=== PATIENT | female | born 1940 | race Asian ===

== ENCOUNTER 2017-06-08 22:49 | Inpatient (IN) | payer OTHER, MEDICARE ==
[2017-06-08] MEDS: CEFTRIAXONE 1 GM/50 ML (PMX) 50 ML IVPB (22:56)
[2017-06-08] MEDS: SOD CHLORIDE 0.9% 1,000 ML IV (23:20)
[2017-06-08 23:35] LABS: ADD MAN DIFF? NO
[2017-06-08] MEDS: ONDANSETRON 4 MG INJ IV (23:35)
[2017-06-08] MEDS: PANTOPRAZOLE IV 80 MG in SOD CHLORIDE 0.9% 100 ML IVPB (23:36)
[2017-06-08 23:41] LABS: WHITE BLOOD COUNT 7.4 10^3/ul (4.8-10.8)
[2017-06-08 23:41] LABS: ABNORMAL IP MESSAGE 1; BASOPHILS % 0.3 % (0.0-2.0); EOSINOPHILS # 0.2 10^3/ul (0.0-0.5); EOSINOPHILS % 2.2 % (0.0-7.0); HEMATOCRIT 28.1 % (37.0-47.0); LYMPHOCYTES # 2.6 10^3/ul (0.8-2.9); LYMPHOCYTES % 34.6 % (15.0-51.0); MEAN CORPUSCULAR HEMOGLOBIN 29.4 pg (29.0-33.0); MEAN CORPUSCULAR VOLUME 91.8 fl (82.0-101.0); MONOCYTE # 0.5 10^3/ul (0.3-0.9); MONOCYTES % 6.7 % (0.0-11.0); NEUTROPHIL # 4.2 10^3/ul (1.6-7.5); NEUTROPHILS % 55.8 % (39.0-77.0); PLATELET COUNT 88 10^3/UL (140-415); RED BLOOD COUNT 3.06 10^6/ul (4.20-5.40); RED CELL DISTRIBUTION WIDTH 16.9 % (11.5-14.5)
[2017-06-08 23:54] LABS: INR 1.21; PROTIME 15.5 Sec (11.9-14.9); PT RATIO 1.2
[2017-06-08 23:55] LABS: PARTIAL THROMBOPLASTIN TIME 32.4 Sec (25.0-35.0)
[2017-06-08 23:56] LABS: ALANINE AMINOTRANSFERASE 37 IU/L (13-69); ALBUMIN 3.4 g/dl (3.3-4.9); ALBUMIN/GLOBULIN RATIO 1.13; ALKALINE PHOSPHATASE 70 IU/L (42-121); ANION GAP 14 (8-16); ASPARTATE AMINO TRANSFERASE 30 IU/L (15-46); BILIRUBIN,INDIRECT 0.5 mg/dl (0-1.1); BILIRUBIN,TOTAL 0.5 mg/dl (0.2-1.3); BLOOD UREA NITROGEN 11 mg/dl (7-20); CALCIUM 8.8 mg/dl (8.4-10.2); CARBON DIOXIDE 24 mmol/L (21-31); CHLORIDE 107 mmol/L (97-110); CREATININE 0.72 mg/dl (0.44-1.00); GLUCOSE 181 mg/dl (70-220); POSITIVE DIFF @See below; POTASSIUM 3.6 mmol/L (3.5-5.1); SODIUM 141 mmol/L (135-144); TOTAL PROTEIN 6.4 g/dl (6.1-8.1)
[2017-06-09] MEDS: OCTREOTIDE 50 MCG in SOD CHLORIDE 0.9% 25 ML IVPB (00:05)
[2017-06-09 00:08] LABS: TROPONIN-I < 0.012 ng/ml (0.00-0.12)
[2017-06-09] MEDS: OCTREOTIDE 500 MCG in SOD CHLORIDE 0.9% 49 ML IV (00:20)
[2017-06-09 07:35] LABS: ADD MAN DIFF? NO
[2017-06-09 07:40] LABS: WHITE BLOOD COUNT 3.2 10^3/ul (4.8-10.8)
[2017-06-09 07:40] LABS: ABNORMAL IP MESSAGE 1; EOSINOPHILS % 1.3 % (0.0-7.0); HEMATOCRIT 18.7 % (37.0-47.0); LYMPHOCYTES # 0.7 10^3/ul (0.8-2.9); LYMPHOCYTES % 23.5 % (15.0-51.0); MEAN CORPUSCULAR HEMOGLOBIN 28.9 pg (29.0-33.0); MEAN CORPUSCULAR HGB CONC 31.6 g/dl (32.0-37.0); MEAN CORPUSCULAR VOLUME 91.7 fl (82.0-101.0); MEAN PLATELET VOLUME 11.1 fl (7.4-10.4); MONOCYTE # 0.3 10^3/ul (0.3-0.9); MONOCYTES % 8.3 % (0.0-11.0); NEUTROPHIL # 2.1 10^3/ul (1.6-7.5); NEUTROPHILS % 66.6 % (39.0-77.0); PLATELET COUNT 35 10^3/UL (140-415); RED BLOOD COUNT 2.04 10^6/ul (4.20-5.40)
[2017-06-09 07:42] LABS: POSITIVE DIFF @See below
[2017-06-09 07:44] LABS: HEMOGLOBIN 5.9 g/dl (12.0-16.0)
[2017-06-09 07:45] LABS: PATH REVIEW? YES
[2017-06-09 10:34] LABS: ANISOCYTOSIS 1+ (0-0); BAND NEUTROPHILS #M 0.1 10^3/ul (0.0-0.6); BAND NEUTROPHILS % (M) 5 % (0-4); EOSINOPHILS % (M) 2 % (0-7); GIANT THROMBO% (M) 5 % (0-0); HYPOCHROMASIA 1+ (0-0); LYMPHOCYTES #M 0.6 10^3/ul (0.8-2.9); LYMPHOCYTES % (M) 20 % (15-51); MONOCYTES % (M) 1 % (0-11); OVALOCYTES 2+ (0-0); PLATELET ESTIMATE DECREASED; POIKILOCYTOSIS 1+ (0-0); POLYCHROMASIA 1+ (0-0); SEG NEUT #M 2.3 10^3/ul (1.6-7.5); SEGMENTED NEUTROPHILS (M) % 72 % (39-77); SMUDGE%M 5 % (0-0); TEAR DROP CELLS 1+ (0-0)
[2017-06-09 20:16] LABS: IRON 53 ug/dl (35-150)
[2017-06-09 20:25] LABS: % IRON SATURATION 17 % SAT (22-52); TOTAL IRON BINDING CAPACITY 303 ug/dl (241-421)
[2017-06-09] MEDS: OCTREOTIDE 50 MCG in SOD CHLORIDE 0.9% 50 ML IVPB (21:18)
[2017-06-09] MEDS: PANTOPRAZOLE IV 80 MG in SOD CHLORIDE 0.9% 100 ML IV ×2 (21:20)
[2017-06-09 21:23] LABS: FOLATE 14.5 ng/ml (2.8-20.0)
[2017-06-09 21:28] LABS: ADD MAN DIFF? NO
[2017-06-09 21:30] LABS: ABNORMAL IP MESSAGE 1; BASOPHILS % 0.4 % (0.0-2.0); EOSINOPHILS # 0.1 10^3/ul (0.0-0.5); EOSINOPHILS % 1.3 % (0.0-7.0); HEMATOCRIT 28.7 % (37.0-47.0); HEMOGLOBIN 9.5 g/dl (12.0-16.0); LYMPHOCYTES # 1.3 10^3/ul (0.8-2.9); LYMPHOCYTES % 23.2 % (15.0-51.0); MEAN CORPUSCULAR HEMOGLOBIN 30.3 pg (29.0-33.0); MEAN CORPUSCULAR HGB CONC 33.1 g/dl (32.0-37.0); MEAN CORPUSCULAR VOLUME 91.4 fl (82.0-101.0); MEAN PLATELET VOLUME 10.4 fl (7.4-10.4); MONOCYTE # 0.4 10^3/ul (0.3-0.9); MONOCYTES % 7.7 % (0.0-11.0); NEUTROPHIL # 3.6 10^3/ul (1.6-7.5); NEUTROPHILS % 66.3 % (39.0-77.0); RED BLOOD COUNT 3.14 10^6/ul (4.20-5.40)
[2017-06-09 21:30] LABS: WHITE BLOOD COUNT 5.4 10^3/ul (4.8-10.8)
[2017-06-09 21:31] LABS: PLATELET COUNT 54 10^3/UL (140-415)
[2017-06-09 23:24] LABS: IMMEDIATE SPIN CROSSMATCH 1 4
[2017-06-09] MEDS: OCTREOTIDE 1 MG in DEXTROSE 5% 95 ML IV (23:35)
[2017-06-10 03:22] LABS: HEMOGLOBIN 7.9 g/dl (12.0-16.0)
[2017-06-10] MEDS: SOD CHLORIDE 0.9% 250 ML IV (05:54)
[2017-06-10 07:24] LABS: ADD MAN DIFF? NO
[2017-06-10 07:30] LABS: ABNORMAL IP MESSAGE 1; BASOPHILS % 0.2 % (0.0-2.0); EOSINOPHILS % 0.2 % (0.0-7.0); HEMATOCRIT 23.5 % (37.0-47.0); HEMOGLOBIN 7.7 g/dl (12.0-16.0); LYMPHOCYTES # 0.4 10^3/ul (0.8-2.9); MEAN CORPUSCULAR HEMOGLOBIN 29.6 pg (29.0-33.0); MEAN CORPUSCULAR HGB CONC 32.8 g/dl (32.0-37.0); MEAN CORPUSCULAR VOLUME 90.4 fl (82.0-101.0); MEAN PLATELET VOLUME 10.8 fl (7.4-10.4); MONOCYTE # 0.2 10^3/ul (0.3-0.9); NEUTROPHIL # 4.4 10^3/ul (1.6-7.5); RED CELL DISTRIBUTION WIDTH 16.2 % (11.5-14.5)
[2017-06-10 07:40] LABS: PLATELET COUNT 34 10^3/UL (140-415); POSITIVE DIFF @See below
[2017-06-10] MEDS: PANTOPRAZOLE IV 80 MG in SOD CHLORIDE 0.9% 100 ML IV ×2 (07:41→18:40)
[2017-06-10 08:02] LABS: ALANINE AMINOTRANSFERASE 40 IU/L (13-69); ALBUMIN 3.3 g/dl (3.3-4.9); ALKALINE PHOSPHATASE 54 IU/L (42-121); ANION GAP 12 (8-16); ASPARTATE AMINO TRANSFERASE 37 IU/L (15-46); BILIRUBIN,INDIRECT 2.3 mg/dl (0-1.1); BILIRUBIN,TOTAL 2.3 mg/dl (0.2-1.3); BLOOD UREA NITROGEN 22 mg/dl (7-20); CALCIUM 8.7 mg/dl (8.4-10.2); CARBON DIOXIDE 25 mmol/L (21-31); CHLORIDE 109 mmol/L (97-110); CREATININE 0.79 mg/dl (0.44-1.00); GLUCOSE 132 mg/dl (70-220); MAGNESIUM 1.6 mg/dl (1.7-2.5); POTASSIUM 3.7 mmol/L (3.5-5.1); SODIUM 142 mmol/L (135-144); TOTAL PROTEIN 6.3 g/dl (6.1-8.1)
[2017-06-10 08:57] LABS: ADD UMIC YES; UR ASCORBIC ACID NEGATIVE (NEGATIVE); UR BILIRUBIN (Dip) NEGATIVE (NEGATIVE); UR BLOOD (Dip) 1+ mg/dL (NEGATIVE); UR CLARITY SLIGHTLY CLOUDY (CLEAR); UR COLOR YELLOW (YELLOW); UR GLUCOSE (Dip) NEGATIVE (NEGATIVE); UR KETONES (Dip) TRACE mg/dL (NEGATIVE); UR LEUKOCYTE ESTERASE (Dip) NEGATIVE Leu/ul (NEGATIVE); UR MUCUS FEW /HPF (NONE SEEN); UR NITRITE (Dip) NEGATIVE (NEGATIVE); UR RBC 1 /HPF (0-5); UR SPECIFIC GRAVITY (Dip) 1.021 (1.003-1.030); UR TOTAL PROTEIN (Dip) NEGATIVE (NEGATIVE); UR UROBILINOGEN (Dip) NEGATIVE (NEGATIVE); UR WBC 1 /HPF (0-5)
[2017-06-10] MEDS: SOD CHLORIDE 0.9% 250 ML IV* (10:49)
[2017-06-10 12:27] LABS: HEMATOCRIT 26.5 % (37.0-47.0)
[2017-06-10] MEDS ORDERED: NACL 0.9% 3 ML SYG IV (13:00)
[2017-06-10] MEDS ORDERED: ONDANSETRON 4 MG INJ IV (13:00)
[2017-06-10] MEDS: D5W-0.45 NACL + KCL 20 MEQ 1,000 ML IV ×2 (16:12→21:57)
[2017-06-10] MEDS: MAGNESIUM SULFATE 2 GM/50 ML 50 ML IVPB (16:18)
[2017-06-10] MEDS: IOHEXOL 100 ML (17:33)
[2017-06-10] MEDS: SOD CHLORIDE 0.9% 100 ML (17:33)
[2017-06-10 18:37] LABS: HEMATOCRIT 24.6 % (37.0-47.0); HEMOGLOBIN 8.2 g/dl (12.0-16.0)
[2017-06-10] MEDS: OCTREOTIDE 1 MG in DEXTROSE 5% 95 ML IV (18:40)
[2017-06-11 02:56] LABS: HEMATOCRIT 27.1 % (37.0-47.0)
[2017-06-11] MEDS: PANTOPRAZOLE IV 80 MG in SOD CHLORIDE 0.9% 100 ML IV (03:07)
[2017-06-11 06:05] LABS: IMMEDIATE SPIN CROSSMATCH 1
[2017-06-11] MEDS: D5W-0.45 NACL + KCL 20 MEQ 1,000 ML IV ×2 (08:58→21:59)
[2017-06-11 11:52] LABS: ADD MAN DIFF? NO
[2017-06-11 11:58] LABS: WHITE BLOOD COUNT 4.1 10^3/ul (4.8-10.8)
[2017-06-11 11:58] LABS: ABNORMAL IP MESSAGE 1; BASOPHILS % 0.2 % (0.0-2.0); EOSINOPHILS # 0.1 10^3/ul (0.0-0.5); EOSINOPHILS % 1.2 % (0.0-7.0); HEMATOCRIT 31.3 % (37.0-47.0); HEMOGLOBIN 10.4 g/dl (12.0-16.0); LYMPHOCYTES # 0.5 10^3/ul (0.8-2.9); LYMPHOCYTES % 11.8 % (15.0-51.0); MEAN CORPUSCULAR HEMOGLOBIN 29.3 pg (29.0-33.0); MEAN CORPUSCULAR HGB CONC 33.2 g/dl (32.0-37.0); MEAN CORPUSCULAR VOLUME 88.2 fl (82.0-101.0); MEAN PLATELET VOLUME 10.2 fl (7.4-10.4); MONOCYTE # 0.3 10^3/ul (0.3-0.9); MONOCYTES % 7.4 % (0.0-11.0); NEUTROPHIL # 3.2 10^3/ul (1.6-7.5); NEUTROPHILS % 78.9 % (39.0-77.0); RED BLOOD COUNT 3.55 10^6/ul (4.20-5.40); RED CELL DISTRIBUTION WIDTH 17.1 % (11.5-14.5)
[2017-06-11 12:12] LABS: PHOSPHORUS 2.1 mg/dl (2.5-4.9)
[2017-06-11 12:13] LABS: ALANINE AMINOTRANSFERASE 37 IU/L (13-69); ALBUMIN 3.2 g/dl (3.3-4.9); ALBUMIN/GLOBULIN RATIO 1.03; ALKALINE PHOSPHATASE 56 IU/L (42-121); ANION GAP 10 (8-16); ASPARTATE AMINO TRANSFERASE 34 IU/L (15-46); BILIRUBIN,INDIRECT 5.6 mg/dl (0-1.1); BILIRUBIN,TOTAL 5.6 mg/dl (0.2-1.3); BLOOD UREA NITROGEN 18 mg/dl (7-20); CALCIUM 8.3 mg/dl (8.4-10.2); CARBON DIOXIDE 26 mmol/L (21-31); CHLORIDE 106 mmol/L (97-110); CREATININE 0.74 mg/dl (0.44-1.00); GLUCOSE 129 mg/dl (70-220); POTASSIUM 4.3 mmol/L (3.5-5.1); SODIUM 138 mmol/L (135-144); TOTAL PROTEIN 6.3 g/dl (6.1-8.1)
[2017-06-11 12:14] LABS: PLATELET COUNT 29 10^3/UL (140-415); POSITIVE DIFF @See below
[2017-06-11] MEDS: PANTOPRAZOLE 40 MG INJ IV (17:30)
[2017-06-11] MEDS: PROPRANOLOL 10 MG TAB PO ×2 (17:31→21:00)
[2017-06-11] MEDS: ACETAMINOPHEN 325 MG TAB PO (17:32)
[2017-06-11] MEDS: VALSARTAN 80 MG TAB PO ×2 (17:32→21:00)
[2017-06-11 20:15] LABS: TYPE AND SCREEN 1
[2017-06-11] MEDS ORDERED: VALSARTAN 80 MG TAB PO (21:00)
[2017-06-12] MEDS: PANTOPRAZOLE 40 MG INJ IV ×2 (06:32→18:38)
[2017-06-12] MEDS: VALSARTAN 80 MG TAB PO ×2 (06:32→21:34)
[2017-06-12 08:58] LABS: ADD MAN DIFF? NO
[2017-06-12 09:12] LABS: ABNORMAL IP MESSAGE 1; EOSINOPHILS # 0.1 10^3/ul (0.0-0.5); EOSINOPHILS % 1.5 % (0.0-7.0); HEMATOCRIT 30.3 % (37.0-47.0); HEMOGLOBIN 10.1 g/dl (12.0-16.0); LYMPHOCYTES # 0.4 10^3/ul (0.8-2.9); LYMPHOCYTES % 11.1 % (15.0-51.0); MEAN CORPUSCULAR HEMOGLOBIN 29.4 pg (29.0-33.0); MEAN CORPUSCULAR HGB CONC 33.3 g/dl (32.0-37.0); MEAN CORPUSCULAR VOLUME 88.1 fl (82.0-101.0); MONOCYTE # 0.3 10^3/ul (0.3-0.9); MONOCYTES % 8.2 % (0.0-11.0); NEUTROPHIL # 2.7 10^3/ul (1.6-7.5); NEUTROPHILS % 78.9 % (39.0-77.0); RED BLOOD COUNT 3.44 10^6/ul (4.20-5.40); RED CELL DISTRIBUTION WIDTH 16.8 % (11.5-14.5)
[2017-06-12 09:12] LABS: WHITE BLOOD COUNT 3.4 10^3/ul (4.8-10.8)
[2017-06-12] MEDS: PROPRANOLOL 10 MG TAB PO ×3 (09:22→21:00)
[2017-06-12 09:34] LABS: ALANINE AMINOTRANSFERASE 35 IU/L (13-69); ALBUMIN 3.2 g/dl (3.3-4.9); ALBUMIN/GLOBULIN RATIO 1.14; ALKALINE PHOSPHATASE 63 IU/L (42-121); ANION GAP 12 (8-16); ASPARTATE AMINO TRANSFERASE 36 IU/L (15-46); BILIRUBIN,INDIRECT 3.4 mg/dl (0-1.1); BILIRUBIN,TOTAL 3.4 mg/dl (0.2-1.3); BLOOD UREA NITROGEN 18 mg/dl (7-20); CALCIUM 8.1 mg/dl (8.4-10.2); CARBON DIOXIDE 23 mmol/L (21-31); CHLORIDE 105 mmol/L (97-110); GLUCOSE 105 mg/dl (70-220); POTASSIUM 4.3 mmol/L (3.5-5.1); SODIUM 136 mmol/L (135-144)
[2017-06-12 09:36] LABS: POSITIVE DIFF @See below
[2017-06-12 09:37] LABS: PLATELET COUNT 66 10^3/UL (140-415)
[2017-06-12 10:00] LABS: PHOSPHORUS 2.2 mg/dl (2.5-4.9)
[2017-06-12 10:00] LABS: MAGNESIUM 1.8 mg/dl (1.7-2.5)
[2017-06-12] MEDS: D5W-0.45 NACL + KCL 20 MEQ 1,000 ML IV ×2 (11:19→18:39)
[2017-06-12] MEDS: ACETAMINOPHEN 650 MG SUPP PR (15:46)
[2017-06-13] MEDS: PANTOPRAZOLE 40 MG INJ IV ×2 (06:27→17:41)
[2017-06-13] MEDS: PROPRANOLOL 10 MG TAB PO ×3 (08:59→20:42)
[2017-06-13] MEDS: VALSARTAN 80 MG TAB PO ×2 (09:00→20:42)
[2017-06-13] MEDS: D5W-0.45 NACL + KCL 20 MEQ 1,000 ML IV (09:10)
[2017-06-13] MEDS: ACETAMINOPHEN 650 MG SUPP PR ×2 (12:41→23:49)
[2017-06-13] MEDS: ALBUTEROL/IPRATROPIUM (NEB) 3 ML AMP HHN (21:23)
[2017-06-14] MEDS: ALBUTEROL/IPRATROPIUM (NEB) 3 ML AMP HHN ×3 (01:00→09:00)
[2017-06-14] MEDS: D5W-0.45 NACL + KCL 20 MEQ 1,000 ML IV (02:10)
[2017-06-14] MEDS: METHYLPREDNISOLONE 125 MG INJ IV (04:34)
[2017-06-14 06:58] LABS: ADD MAN DIFF? NO
[2017-06-14 07:04] LABS: WHITE BLOOD COUNT 2.7 10^3/ul (4.8-10.8)
[2017-06-14 07:04] LABS: ABNORMAL IP MESSAGE 1; BASOPHILS % 0.4 % (0.0-2.0); EOSINOPHILS # 0.1 10^3/ul (0.0-0.5); EOSINOPHILS % 2.6 % (0.0-7.0); HEMATOCRIT 33.3 % (37.0-47.0); HEMOGLOBIN 10.8 g/dl (12.0-16.0); LYMPHOCYTES # 0.5 10^3/ul (0.8-2.9); MEAN CORPUSCULAR HGB CONC 32.4 g/dl (32.0-37.0); MEAN CORPUSCULAR VOLUME 89.3 fl (82.0-101.0); MEAN PLATELET VOLUME 11.1 fl (7.4-10.4); MONOCYTE # 0.3 10^3/ul (0.3-0.9); MONOCYTES % 11.9 % (0.0-11.0); NEUTROPHIL # 1.8 10^3/ul (1.6-7.5); NEUTROPHILS % 65.7 % (39.0-77.0); RED BLOOD COUNT 3.73 10^6/ul (4.20-5.40); RED CELL DISTRIBUTION WIDTH 16.6 % (11.5-14.5)
[2017-06-14] MEDS: PANTOPRAZOLE 40 MG INJ IV (07:09)
[2017-06-14 07:20] LABS: PLATELET COUNT 43 10^3/UL (140-415); POSITIVE DIFF @See below
[2017-06-14 07:27] LABS: ANION GAP 9 (8-16); BLOOD UREA NITROGEN 9 mg/dl (7-20); CALCIUM 8.3 mg/dl (8.4-10.2); CARBON DIOXIDE 25 mmol/L (21-31); CHLORIDE 107 mmol/L (97-110); CREATININE 0.56 mg/dl (0.44-1.00); GLUCOSE 104 mg/dl (70-220); SODIUM 137 mmol/L (135-144)
[2017-06-14] MEDS: PROPRANOLOL 10 MG TAB PO (09:00)
[2017-06-14 09:08] LABS: PRETRANSFUSION BILIRUBIN 0.3 mg/dl
[2017-06-14 09:09] LABS: POST-TRANSFUSION BILIRUBIN 1.1 mg/dl
[2017-06-14] MEDS: FUROSEMIDE 40 MG INJ IV (09:59)
[2017-06-14] MEDS: VALSARTAN 80 MG TAB PO (09:59)
[2017-06-14 15:34] LABS: ADD UMIC YES; UR ASCORBIC ACID NEGATIVE (NEGATIVE); UR BILIRUBIN (Dip) NEGATIVE (NEGATIVE); UR BLOOD (Dip) 2+ mg/dL (NEGATIVE); UR CLARITY CLEAR (CLEAR); UR COLOR YELLOW (YELLOW); UR GLUCOSE (Dip) NEGATIVE (NEGATIVE); UR KETONES (Dip) NEGATIVE (NEGATIVE); UR LEUKOCYTE ESTERASE (Dip) NEGATIVE Leu/ul (NEGATIVE); UR NITRITE (Dip) NEGATIVE (NEGATIVE); UR RBC 0 /HPF (0-5); UR SPECIFIC GRAVITY (Dip) 1.001 (1.003-1.030); UR TOTAL PROTEIN (Dip) NEGATIVE (NEGATIVE); UR UROBILINOGEN (Dip) NEGATIVE (NEGATIVE); UR WBC 1 /HPF (0-5)
[2017-06-14] MEDS ORDERED: PROPRANOLOL 10 MG TAB PO (21:00)
== END 2017-06-14 14:00 | disposition home or self-care (01) | DRG 441 ==
LOC: ICU 06-10 03:46 → MS4 06-12 22:00 → E/R 22:49 → MS2 06-10 15:00 → MS4 06-10 16:57
PROC: 06L38CZ Occlusion of Esophageal Vein with Extraluminal Device, Via Natural or Artificial Opening Endoscopic (ICD-10-PCS; principal; 2017-06-09 19:00)
PROC: 0D758ZZ Dilation of Esophagus, Via Natural or Artificial Opening Endoscopic (ICD-10-PCS; 2017-06-09 19:00)
PROC: 30233K1 Transfusion of Nonautologous Frozen Plasma into Peripheral Vein, Percutaneous Approach (ICD-10-PCS; 2017-06-09 19:43)
PROC: 30233N1 Transfusion of Nonautologous Red Blood Cells into Peripheral Vein, Percutaneous Approach (ICD-10-PCS; 2017-06-09 19:43)
PROC: 30233R1 Transfusion of Nonautologous Platelets into Peripheral Vein, Percutaneous Approach (ICD-10-PCS; 2017-06-09 19:43)
DX: K76.6 Portal hypertension (principal); I85.11 Secondary esophageal varices with bleeding; D61.818 Other pancytopenia; D62 Acute posthemorrhagic anemia; K22.2 Esophageal obstruction; I10 Essential (primary) hypertension; K21.9 Gastro-esophageal reflux disease without esophagitis; Z88.0 Allergy status to penicillin
CPT/HCPCS: 36415; 36430; 71045; 74178; 76705; 80048; 80053; 81001; 82607; 82746; 83540; 83735; 84100; 84484; 85014; 85018; 85025; 85610; 85730; 86078; 86644; 86850; 86870; 86900; 86901; 86920; 86945; 87040; 87086; 93005; 96374; 96375; 96376; 97163; 99291-25